=== PATIENT | male | born 2000 | race Caucasian/White ===

== ENCOUNTER 2021-02-22 11:44 | Emergency (ER) | payer OTHER, SELFPAY | END 2021-02-22 15:59 | disposition left against medical advice (07) | LOC: HO.ED 15:08 | PROVIDERS: Emergency Provider Emergency Medicine; PCP Internal Medicine | DX: T78.40XA Allergy, unspecified, initial encounter (principal); X58.XXXA Exposure to other specified factors, initial encounter ==